=== PATIENT | male | born 1930 | race Caucasian/White ===

== ENCOUNTER 2021-02-17 20:35 | Inpatient (IN) | payer MEDICARE, OTHER ==
[~2021-02-17] VITALS: Ht 182.9 cm; Wt 89.4 kg
[2021-02-17 21:26] LABS: HEMATOCRIT. 36.2 % (42.0-52.0); HEMOGLOBIN. 11.6 g/dL (14.0-18.0); MEAN CORPUSCULAR HEMOGLOBIN 28.2 pg (28.0-32.0); MEAN CORPUSCULAR VOLUME 88.1 fL (80.0-94.0); MEAN PLATELET VOLUME 8.8 fl (7.4-10.4); PLATELET 101 x1000/uL (130-400); RED BLOOD CELL COUNT 4.11 mill/uL (4.7-6.1); RED CELL DISTRIBUTION WIDTH 16.1 % (11.6-14.6)
[2021-02-17 21:31] LABS: CHLORIDE 108 mEq/L (98-107)
[2021-02-17] MEDS ORDERED: PIPERACILLIN/TAZOBACTAM 3.375GM/50ML PREMIX IV ONE (22:00)
[2021-02-17] MEDS ORDERED: SODIUM CHLORIDE 0.9% 1000ML BAG (SEPSIS BOLUS) IV ONE (22:00)
[2021-02-17] MEDS ORDERED: VANCOMYCIN 1 G PREMIX 200 ML IV NR (22:00)
[2021-02-17] MEDS ORDERED: PIPERACILLIN/TAZ 3.375G PREMIX 50 ML IV NR (22:15)
[2021-02-17 23:18] LABS: PLATELET ESTIMATE DECREASED
[2021-02-18] MEDS ORDERED: ACETAMINOPHEN 325MG TABLET PO PRN ×2
[2021-02-18] MEDS ORDERED: GUAIFENESIN 200MG/10ML SUGAR FREE UDC PO PRN
[2021-02-18] MEDS ORDERED: ENOXAPARIN 40MG/0.4ML SYR SUBCUT SCH
[2021-02-18] MEDS ORDERED: ONDANSETRON HCL 4MG/2ML INJ IV PRN
[2021-02-18] MEDS ORDERED: MAGNESIUM/ALUMINUM HYDROXIDE/SIMETHICONE 30ML UDC PO PRN
[2021-02-18 00:45] LABS: CLARITY URINE TURBID (CLEAR); COLOR URINE YELLOW (YELLOW); KETONES URINE NEGATIVE (NEGATIVE); LEUKOCYTE ESTERASE URINE 3+ (NEGATIVE); NITRITE URINE NEGATIVE (NEGATIVE); OCCULT BLOOD URINE 1+ (NEGATIVE); PROTEIN URINE 1+ (NEGATIVE); SPECIFIC GRAVITY URINE 1.009 (1.005-1.030); UROBILINOGEN URINE 0.2 E.U./dL (0.2-1.0)
[2021-02-18] MEDS: SODIUM CHLORIDE 0.45% 1,000 ML IV SCH ×3 (01:53→16:24)
[2021-02-18] MEDS ORDERED: PIPERACILLIN/TAZ 3.375G PREMIX 50 ML IV SCH (06:00)
[2021-02-18] MEDS ORDERED: VANCOMYCIN 1 G PREMIX 200 ML IV SCH (08:00)
[2021-02-18 08:38] VITALS: BP 141/76
[2021-02-18] MEDS ORDERED: ENOXAPARIN 30MG/0.3ML SYR SUBCUT SCH (09:00)
[2021-02-18 12:00] VITALS: BP 156/69
[2021-02-18] MEDS ORDERED: IPRATROPIUM/ALBUTEROL 0.5-3(2.5)MG/3ML NEB HHN PRN (13:30)
[2021-02-18] MEDS ORDERED: VALA100044 PO (14:00)
[2021-02-18] MEDS ORDERED: ENTE0.5T11 PO (14:00)
[2021-02-18] MEDS ORDERED: TAMS-11 PO (14:00)
[2021-02-18] MEDS ORDERED: GABA-529 PO (14:00)
[2021-02-18] MEDS ORDERED: ATOR-2 PO (14:00)
[2021-02-18] MEDS ORDERED: LAMO100T16 PO (14:00)
[2021-02-18] MEDS ORDERED: TRAZ-251 PO (14:00)
[2021-02-18 16:00] VITALS: BP 157/85
[2021-02-18] MEDS ORDERED: PIPERACILLIN/TAZOBACTAM 3.375G in DEXT 5% WATER 50ML IV SCH (16:00)
[2021-02-18] MEDS ORDERED: VANCOMYCIN 1250MG in DEXTROSE 5% WATER 250ML IV SCH (17:00)
[2021-02-18 20:00] VITALS: BP 126/80
[2021-02-18] MEDS: LAMOTRIGINE 100MG TABLET PO SCH (22:16)
[2021-02-18] MEDS: GABAPENTIN 100MG CAPSULE PO SCH (22:16)
[2021-02-18] MEDS: CEFEPIME 1,000 MG in DEXTROSE 5% WATER 50 ML IV SCH (22:16)
[2021-02-18] MEDS: TRAZODONE HCL 50MG TABLET PO SCH (22:19)
[2021-02-19] VITALS: BP 130/70
[2021-02-19] MEDS: SODIUM CHLORIDE 0.45% 1,000 ML IV SCH ×3 (00:07→17:33)
[2021-02-19 04:00] VITALS: BP 103/58
[2021-02-19 06:27] LABS: HEMATOCRIT. 36.5 % (42.0-52.0); HEMOGLOBIN. 12.2 g/dL (14.0-18.0); MEAN CORPUSCULAR HEMOGLOBIN 28.9 pg (28.0-32.0); MEAN CORPUSCULAR VOLUME 86.4 fL (80.0-94.0); MEAN PLATELET VOLUME 9.6 fl (7.4-10.4); PLATELET 93 x1000/uL (130-400); RED BLOOD CELL COUNT 4.23 mill/uL (4.7-6.1); RED CELL DISTRIBUTION WIDTH 16.2 % (11.6-14.6)
[2021-02-19 07:03] LABS: PHOSPHORUS 2.7 mg/dL (2.5-4.9)
[2021-02-19 08:00] VITALS: BP 128/69
[2021-02-19] MEDS: ENOXAPARIN 40MG/0.4ML SYR SUBCUT SCH (09:00)
[2021-02-19] MEDS: LAMOTRIGINE 100MG TABLET PO SCH ×2 (10:46→17:33)
[2021-02-19] MEDS: GABAPENTIN 100MG CAPSULE PO SCH ×3 (10:46→17:33)
[2021-02-19] MEDS: CEFEPIME 1,000 MG in DEXTROSE 5% WATER 50 ML IV SCH ×2 (10:46→21:22)
[2021-02-19] MEDS: POTASSIUM CHLORIDE 20MEQ TABLET SR PO SCH (10:47)
[2021-02-19 12:00] VITALS: BP 132/68
[2021-02-19] MEDS ORDERED: VANCOMYCIN 1250MG in DEXTROSE 5% WATER 250ML IV SCH (13:00)
[2021-02-19 16:00] VITALS: BP 126/68
[2021-02-19 19:00] LABS: PLATELET ESTIMATE DECREASED
[2021-02-19 20:00] VITALS: BP 119/66
[2021-02-19] MEDS: TRAZODONE HCL 50MG TABLET PO SCH (21:22)
[2021-02-19] MEDS: TAMSULOSIN HCL 0.4MG SR CAPSULE PO SCH (21:22)
[2021-02-20] VITALS: BP 117/80
[2021-02-20 04:00] VITALS: BP 122/88
[2021-02-20] MEDS: SODIUM CHLORIDE 0.45% 1,000 ML IV SCH ×2 (06:19→10:22)
[2021-02-20 06:32] LABS: HEMOGLOBIN. 12.7 g/dL (14.0-18.0); MEAN PLATELET VOLUME 9.6 fl (7.4-10.4); PLATELET 99 x1000/uL (130-400); RED BLOOD CELL COUNT 4.37 mill/uL (4.7-6.1); RED CELL DISTRIBUTION WIDTH 16.1 % (11.6-14.6)
[2021-02-20 08:00] VITALS: BP 152/77
[2021-02-20] MEDS: ENOXAPARIN 40MG/0.4ML SYR SUBCUT SCH (09:00)
[2021-02-20] MEDS: CEFEPIME 1,000 MG in DEXTROSE 5% WATER 50 ML IV SCH ×2 (10:20→21:59)
[2021-02-20] MEDS: LAMOTRIGINE 100MG TABLET PO SCH ×2 (10:21→16:35)
[2021-02-20] MEDS: GABAPENTIN 100MG CAPSULE PO SCH ×3 (10:21→16:35)
[2021-02-20] MEDS: POTASSIUM CHLORIDE 20MEQ TABLET SR PO SCH (10:21)
[2021-02-20 12:00] VITALS: BP 140/65
[2021-02-20 16:00] VITALS: BP 158/71
[2021-02-20 19:17] LABS: PLATELET ESTIMATE DECREASED
[2021-02-20] MEDS ORDERED: SULF-13 MT (20:52)
[2021-02-20] MEDS ORDERED: DEXTL PO (20:52)
[2021-02-20] MEDS: TRAZODONE HCL 50MG TABLET PO SCH (21:59)
[2021-02-20] MEDS: TAMSULOSIN HCL 0.4MG SR CAPSULE PO SCH (22:00)
[2021-02-21 07:08] LABS: HEMATOCRIT. 33.8 % (42.0-52.0); HEMOGLOBIN. 11.4 g/dL (14.0-18.0); MEAN CORPUSCULAR HEMOGLOBIN 29.1 pg (28.0-32.0); MEAN CORPUSCULAR VOLUME 86.4 fL (80.0-94.0); MEAN PLATELET VOLUME 9.4 fl (7.4-10.4); PLATELET 95 x1000/uL (130-400); RED BLOOD CELL COUNT 3.91 mill/uL (4.7-6.1); RED CELL DISTRIBUTION WIDTH 15.9 % (11.6-14.6)
[2021-02-21 08:47] VITALS: BP 136/70
[2021-02-21] MEDS ORDERED: AMLODIPINE 2.5MG TABLET PO SCH (09:30)
[2021-02-21 13:12] LABS: PLATELET ESTIMATE DECREASED
== END 2021-02-21 10:45 | disposition home or self-care (01) | DRG 871 ==
LOC: ER 20:35 → 8WST 23:15 → EDBEDREQ 23:18 → EDBEDREQTM 23:18 → SUPCPDRO 23:39 → ENRESERV 02-18 07:33
PROVIDERS: ADMIT Internal Medicine; ATTEND Internal Medicine
PROC: 4B02XSZ Measurement of Cardiac Pacemaker, External Approach (ICD-10-PCS; principal; 2021-02-18)
DX: A41.50 Gram-negative sepsis, unspecified (principal); J18.9 Pneumonia, unspecified organism; N39.0 Urinary tract infection, site not specified; C95.91 Leukemia, unspecified, in remission; D61.818 Other pancytopenia; E87.2 Acidosis; N17.9 Acute kidney failure, unspecified; I65.22 Occlusion and stenosis of left carotid artery; I11.9 Hypertensive heart disease without heart failure; R21 Rash and other nonspecific skin eruption; G90.8 Other disorders of autonomic nervous system; B96.1 Klebsiella pneumoniae [K. pneumoniae] as the cause of diseases classified elsewhere; Z20.822 Contact with and (suspected) exposure to COVID-19; R65.20 Severe sepsis without septic shock; Z86.73 Personal history of transient ischemic attack (TIA), and cerebral infarction without residual deficits; Z83.3 Family history of diabetes mellitus; Z86.74 Personal history of sudden cardiac arrest; Z87.891 Personal history of nicotine dependence; Z82.49 Family history of ischemic heart disease and other diseases of the circulatory system; Z79.899 Other long term (current) drug therapy; I25.2 Old myocardial infarction; Z95.0 Presence of cardiac pacemaker
CPT/HCPCS: 36415; 71045; 80048; 80053; 80061; 80202; 81003; 82550; 82962; 83605; 83735; 83880; 84100; 84145; 84484; 85025; 87077; 87186; 87426; 93005; 93306; 93880; 97166; 99291; C1893; J0692; J1650; J2543; J3370; J7030; J7060